=== PATIENT | female | born 1990 | race Two or more races ===

== ENCOUNTER 2021-07-07 09:51 | Emergency (ER) | payer MEDICAID ==
--- NOTE | 2021-07-07 10:18 | EDM.PDOC ---
ED HPI GENERAL MEDICAL PROBLEM - General Chief Complaint: ENT Problem Stated Complaint: LT EAR PAIN Time Seen by Provider: 07/07/21 10:08 - History of Present Illness INITIAL COMMENTS - FREE TEXT/NARRATIVE: 31-year-old female presents the emergency room with a going on 2-day history of left ear pain. Patient tried to put a Q-tip in there because she thought maybe she had a cyst in there and it would not fit in her ear. The patient has done some swimming about a week ago but nothing since then. She has not had any fevers or chills. She has discomfort along that ear and down just below the ear and under the jaw on that side. Patient has not experienced symptoms like this in the past. - Related Data Allergies Allergy/AdvReac Type Severity Reaction Status Date / Time chocolate flavor Allergy Headache Verified 07/07/21 10:11 peanut Allergy Headache Verified 07/07/21 10:11 Home Meds: Home Meds Hydrocort/Neomycin/Polymyxin B [[id number]-[id number]-SM Otic Susp] 4 drop .XX QID #10 ml 07/07/21 [Rx] ED ROS GENERAL - Review of Systems Review Of Systems: See Below Constitutional: Reports: No Symptoms HEENT: Reports: Ear Pain Respiratory: Reports: No Symptoms Cardiovascular: Reports: No Symptoms GI/Abdominal: Reports: No Symptoms ED EXAM, GENERAL - Physical Exam Exam: See Below Exam Limited By: No Limitations General Appearance: Alert, No Apparent Distress Ears: Other (Right ear is normal left ear tympanic membrane minimally erythematous she is developing an external otitis.) Nose: Normal Inspection, Normal Mucosa, No Blood Throat/Mouth: Normal Inspection, Normal Lips, Normal Teeth, Normal Gums, Normal Oropharynx, Normal Voice, No Airway Compromise Head: Atraumatic, Normocephalic Neck: Normal Inspection, Supple, Non-Tender, Full Range of Motion Respiratory/Chest: No Respiratory Distress, Lungs Clear, Normal Breath Sounds Cardiovascular: Regular Rate, Rhythm, No Edema, No Murmur Departure - Departure Time of Disposition: 10:26 Disposition: Home, Self-Care 01 Clinical Impression: Otitis externa - Discharge Information Referrals: PCP,None [Primary Care Provider] - Additional Instructions: Return to the emergency room with any questions problems or worsening symptoms. Use the drops 4 drops to the left ear 4 times daily and then put 1/5 drop in a small cottonball in place gently in your ear. Do this for 7 days. Follow-up with your regular healthcare provider over the [facility] at the end of this week if needed.
== END 2021-07-07 10:40 | disposition home or self-care (01) ==
LOC: JD.ED 09:51
DX: H60.92 Unspecified otitis externa, left ear (principal); Z91.010 Allergy to peanuts; Z88.8 Allergy status to other drugs, medicaments and biological substances
CPT/HCPCS: 99282

== ENCOUNTER 2022-09-17 13:38 | Inpatient (IN) | payer MEDICAID ==
[2022-09-17] MEDS ORDERED: Nalbuphine HCl 10 MG/ 1ML Amp IVPUSH PRN (14:22)
[2022-09-17] MEDS ORDERED: Sodium Chloride 0.9% 10 ML Syringe FLUSH PRN (14:22)
[2022-09-17] MEDS ORDERED: Lactated Ringers 1,000 ML IV SCH (14:30)
[2022-09-17] MEDS ORDERED: Methylergonovine 0.2 MG/1 ML Amp IM PRN (14:40)
[2022-09-17] MEDS ORDERED: Oxytocin/Lactated Ringers 10 UNIT/1,000 ML BAG IV SCH (18:15)
[2022-09-17] MEDS ORDERED: Acetaminophen 325 MG Tab PO PRN (20:49)
[2022-09-17] MEDS ORDERED: Ibuprofen 600 MG Tab PO PRN (20:49)
[2022-09-17] MEDS ORDERED: Docusate Sodium 100 MG Cap PO PRN (20:49)
[2022-09-17] MEDS ORDERED: Witch Hazel Medicated Pads 40/Jar TOP PRN (20:49)
[2022-09-17] MEDS ORDERED: Benzocaine/Menthol 20%-0.5% Spray 78 GM Cannister TOP PRN (20:49)
[2022-09-17] MEDS ORDERED: Sodium Chloride 0.9% 10 ML Syringe FLUSH SCH (21:00)
== END 2022-09-19 10:00 | disposition home or self-care (01) | DRG 807 ==
LOC: JD.OB 13:38 → JD.OBCHECK 13:38 → JD.OB 16:17 → OBSVTOIN 19:52 → JD.OB 19:53
PROVIDERS: ADMIT Obstetrics & Gynecology; ATTEND Obstetrics & Gynecology
PROC: 10E0XZZ Delivery of Products of Conception, External Approach (ICD-10-PCS; principal; 2022-09-17)
PROC: 10907ZC Drainage of Amniotic Fluid, Therapeutic from Products of Conception, Via Natural or Artificial Opening (ICD-10-PCS; 2022-09-17)
DX: O48.0 Post-term pregnancy (principal); Z37.0 Single live birth; Z3A.40 40 weeks gestation of pregnancy; Z91.010 Allergy to peanuts; Z91.018 Allergy to other foods; Z86.16 Personal history of COVID-19; O69.81X0 Labor and delivery complicated by cord around neck, without compression, not applicable or unspecified
CPT/HCPCS: 36415; 59025; 59409; 85025; 86592; J2590; J7120